=== PATIENT | female | born 1980 | race Native Hawaiian/Other Pacific Islander ===

== ENCOUNTER 2022-12-12 18:35 | Emergency (ER) | payer OTHER ==
--- NOTE | 2022-12-12 18:37 | ERPHSYRPT ---
- History of Present Illness Time Seen by Provider: 12/12/22 18:37 Source: patient Exam Limitations: no limitations Physician History: This is a 42-year-old obese white female patient who was sent to our emergency room from her rn psychiatric because of an elevated D-dimer of greater than 1.0. The patient has noticed in the last few days that she has increasing shortness of breath. She does not have chest pain. She does not have a cough. She has no leg pain. Patient has had contrast intravenously for other radiographic studies. Patient states that her kidney function is generally normal. Timing/Duration: today Severity: mild Associated Symptoms: shortness of breath (Chronic worse in the last 2 to 3 days), weakness, No chest pain Allergies/Adverse Reactions: azithromycin [From Zithromax] Allergy (Verified 12/12/22 19:13) Bleach (Sodium Hypochlorite) Allergy (Verified 12/12/22 19:13) diphenhydramine [From Benadryl] Allergy (Verified 12/12/22 19:13) erythromycin base Allergy (Verified 12/12/22 19:13) eszopiclone [From Lunesta] Allergy (Verified 12/12/22 19:13) gabapentin Allergy (Verified 12/12/22 19:13) metoprolol Allergy (Verified 12/12/22 19:13) metronidazole Allergy (Verified 12/12/22 19:13) montelukast [From Singulair] Allergy (Verified 12/12/22 19:13) prochlorperazine [From Compazine] Allergy (Verified 12/12/22 19:13) verapamil Allergy (Verified 12/12/22 19:13) Travel Risk - International Travel Have you traveled outside of the country in past 3 weeks: No - Coronavirus Screening Are you exhibiting any of the following symptoms?: No Close contact with a COVID-19 positive Pt in past 14-21 Days: No - Review of Systems Constitutional: No Symptoms Eyes: No Symptoms Ears, Nose, & Throat: No Symptoms Respiratory: Dyspnea Cardiac: No Symptoms, No Chest Pain Abdominal/Gastrointestinal: No Symptoms Genitourinary Symptoms: No Symptoms Musculoskeletal: No Symptoms Skin: No Symptoms Neurological: No Symptoms Psychological: No Symptoms Endocrine: No Symptoms Hematologic/Lymphatic: No Symptoms Immunological/Allergic: No Symptoms All Other Systems: Reviewed and Negative - Past Medical History Pertinent Past Medical History: Yes - Past Surgical History Past Surgical History: Yes - Nursing Vital Signs Nursing Vital Signs: Initial Vital Signs Temperature 97.0 F 12/12/22 18:54 Pulse Rate 86 12/12/22 18:54 Respiratory Rate 24 12/12/22 18:54 Blood Pressure 124/88 12/12/22 18:54 O2 Sat by Pulse Oximetry 98 12/12/22 18:54 Pain Scale Pain Intensity 4 - Physical Exam General Appearance: no apparent distress, alert, anxiety, obese Eye Exam: PERRL/EOMI, eyes nml inspection Ears, Nose, Throat Exam: normal ENT inspection, moist mucous membranes Neck Exam: normal inspection, non-tender, supple, full range of motion Respiratory Exam: normal breath sounds, lungs clear, airway intact, No chest tenderness, No respiratory distress Cardiovascular Exam: regular rate/rhythm, normal heart sounds, normal peripheral pulses Gastrointestinal/Abdomen Exam: soft, normal bowel sounds, No tenderness Pelvic Exam: not done Rectal Exam: not done Back Exam: normal inspection, normal range of motion, No CVA tenderness, No vertebral tenderness Extremity Exam: normal inspection, normal range of motion, pelvis stable Neurologic Exam: alert, oriented x 3, cooperative, outreach liaison II-XII nml as tested, normal mood/affect, nml cerebellar function, nml station & gait, sensation nml Skin Exam: normal color, warm, dry Lymphatic Exam: No adenopathy SpO2 Interpretation: normal O2 Delivery: Room Air - Course Nursing assessment & vital signs reviewed: Yes EKG Interpreted by Me: RATE (82), Sinus Rhythm, NORMAL AXIS, NORMAL INTERVALS, NORMAL QRS, NORMAL ST-T, Other (No acute ischemic changes on today's twelve-lead EKG. I interpreted this EKG on my own.) Ordered Tests: Active Orders 24 hr Category Date Time Status EKG-ER Only STAT Care 12/12/22 19:12 Active IV Insertion STAT Care 12/12/22 19:11 Active CBC W DIFF Stat Lab 12/12/22 19:25 Completed CMP Stat Lab 12/12/22 19:25 Completed D-DIMER QUANTITATIVE Stat Lab 12/12/22 19:25 Completed TROPONIN Q4H Lab 12/12/22 19:25 Completed TROPONIN Q4H Lab 12/12/22 23:15 Ordered TROPONIN Q4H Lab 12/13/22 03:15 Ordered Medication Summary Generic Name Dose Route Start Last Admin Trade Name Ramakrishna PRN Reason Stop Dose Admin Sodium Chloride 1,000 mls @ 100 mls/hr 12/12/22 19:15 12/12/22 20:10 Sodium Chloride 0.9% 1000 Ml IV 01/11/23 19:14 100 mls/hr .Q10H CEDRICK Administration Lab/Rad Data: Laboratory Result Diagrams 12/12/22 19:25 12/12/22 19:25 Laboratory Results 12/12/22 12/12/22 12/12/22 Range/Units 19:25 19:25 19:25 WBC (4.0-10.5) x10^3/uL RBC (4.1-5.4) x10^6/uL Hgb (12.0-16.0) g/dL Hct (35-47) % MCV (78-100) fL MCH (26-32) pg MCHC (32-36) g/dL RDW (11.5-14.0) % Plt Count (150-450) x10^3/uL MPV (7.5-11.0) fL Gran % (36.0-66.0) % Immature Gran % (Auto) (0.00-0.4) % Nucleat RBC Rel Count (0.00-0.1) % Eos # (Auto) (0-0.5) x10^3/uL Immature Gran # (Auto) (0.00-0.03) x10^3u/L Absolute Lymphs (auto) (1.0-4.6) x10^3/uL Absolute Monos (auto) (0.0-1.3) x10^3/uL Absolute Nucleated RBC (0.00-0.01) x10^3u/L Lymphocytes % (24.0-44.0) % Monocytes % (0.0-12.0) % Eosinophils % (0.00-5.0) % Basophils % (0.0-0.4) % Absolute Granulocytes (1.4-6.9) x10^3/uL Basophils # (0-0.4) x10^3/uL D-Dimer < 0.19 (0.0-0.50) mg/L Sodium 139 (137-145) mmol/L Potassium 4.1 (3.5-5.1) mmol/L Chloride 109 H (98-107) mmol/L Carbon Dioxide 20 L (22-30) mmol/L Anion Gap 13.2 (5-15) MEQ/L BUN 13 (7-17) mg/dL Creatinine 1.44 H (0.52-1.04) mg/dL Estimated GFR 42.6 ML/MIN Glucose 97 (74-106) mg/dL Calcium 9.0 (8.4-10.2) mg/dL Total Bilirubin 0.60 (0.2-1.3) mg/dL AST 21 (14-36) U/L ALT 14 (0-35) U/L Alkaline Phosphatase 97 (38-126) U/L Troponin I < 0.012 (0.000-0.034) ng/mL Serum Total Protein 7.3 (6.3-8.2) g/dL Albumin 4.4 (3.5-5.0) g/dL 12/12/22 Range/Units 19:25 WBC 8.9 (4.0-10.5) x10^3/uL RBC 4.48 (4.1-5.4) x10^6/uL Hgb 12.7 (12.0-16.0) g/dL Hct 38.7 (35-47) % MCV 86.4 (78-100) fL MCH 28.3 (26-32) pg MCHC 32.8 (32-36) g/dL RDW 13.2 (11.5-14.0) % Plt Count 261 (150-450) x10^3/uL MPV 10.6 (7.5-11.0) fL Gran % 67.8 H (36.0-66.0) % Immature Gran % (Auto) 0.4 (0.00-0.4) % Nucleat RBC Rel Count 0.0 (0.00-0.1) % Eos # (Auto) 0 (0-0.5) x10^3/uL Immature Gran # (Auto) 0.04 H (0.00-0.03) x10^3u/L Absolute Lymphs (auto) 2.10 (1.0-4.6) x10^3/uL Absolute Monos (auto) 0.66 (0.0-1.3) x10^3/uL Absolute Nucleated RBC 0.00 (0.00-0.01) x10^3u/L Lymphocytes % 23.5 L (24.0-44.0) % Monocytes % 7.4 (0.0-12.0) % Eosinophils % 0.0 (0.00-5.0) % Basophils % 0.9 (0.0-0.4) % Absolute Granulocytes 6.04 (1.4-6.9) x10^3/uL Basophils # 0.08 (0-0.4) x10^3/uL D-Dimer (0.0-0.50) mg/L Sodium (137-145) mmol/L Potassium (3.5-5.1) mmol/L Chloride (98-107) mmol/L Carbon Dioxide (22-30) mmol/L Anion Gap (5-15) MEQ/L BUN (7-17) mg/dL Creatinine (0.52-1.04) mg/dL Estimated GFR ML/MIN Glucose (74-106) mg/dL Calcium (8.4-10.2) mg/dL Total Bilirubin (0.2-1.3) mg/dL AST (14-36) U/L ALT (0-35) U/L Alkaline Phosphatase (38-126) U/L Troponin I (0.000-0.034) ng/mL Serum Total Protein (6.3-8.2) g/dL Albumin (3.5-5.0) g/dL - Progress Progress: unchanged Progress Note: 12/12/22 20:47 Patient was sent here for further evaluation because of an elevated D-dimer that was performed last week out of the rn psychiatric office. Patient was told that the value was elevated. Patient was told to come to the emergency department for further evaluation. We repeated the blood work here and patient's D-dimer and troponin levels are within normal limits. The patient's medical issues of moderate complexity. Based on the patient's complaint, patient's history of present illness, review of patient's medical history and review of patient's drug allergies. In addition, I used the findings on the physical exam to perform/order the work-up. I reviewed the results of the work-up with the patient. Discharge plan discussed with the patient and the patient's spouse. Patient will return to her prescribing physician/rn psychiatric for further ev aluation and management. Performing the CTA of the chest with contrast is not without potential adverse effects. Therefore, I told the patient I would not be ordering that test tonight based on her normal D-dimer values Counseled pt/family regarding: lab results, diagnosis, need for follow-up Medical Desision Making - Independent Historian Additional History obtained from: Spouse - Discussion of managment Reviewed:: Test results, Need for additional workup Agreed on:: Treatment plan, need for follow-up - Diagnostic Testing Diagnostic test were ordered, analyzed, and reviewed by me: Yes - Risk of complications Low Risk: Low risk of morbidity from additional dx testing or treatment - Departure Departure Disposition: Home Clinical Impression: Shortness of breath Condition: Stable Critical Care Time: No Referrals: RAGHAVENDRA MAY [Primary Care Provider] - Follow up/PCP as directed Additional Instructions: Continue medication as prescribed. Contact your rn psychiatric and prescribing physician tomorrow and let them know what our work-up showed.
[2022-12-12] MEDS ORDERED: Sodium Chloride 0.9% 1000 ML 1,000 ML IV SCH (19:15)
[2022-12-12 19:31] LABS: Absolute Neutrophil Ct (ANC) 6.04 x10^3/uL (1.4-6.9); BASOPHIL % 0.9 % (0.0-0.4); Basophil (Absolute #) 0.08 x10^3/uL (0-0.4); Eosinophil (Absolute #) 0 x10^3/uL (0-0.5); Hematocrit 38.7 % (35-47); Hemoglobin 12.7 g/dL (12.0-16.0); IMMATURE GRAN # 0.04 x10^3u/L (0.00-0.03); IMMATURE GRAN % 0.4 % (0.00-0.4); Lymphocytes % 23.5 % (24.0-44.0); Mean Cell Volume 86.4 fL (78-100); Mean Corpuscular Hemoglobin 28.3 pg (26-32); Mean Corpuscular Hgb Concent. 32.8 g/dL (32-36); Mean Platelet Volume 10.6 fL (7.5-11.0); Monocyte (Absolute #) 0.66 x10^3/uL (0.0-1.3); Monocytes % 7.4 % (0.0-12.0); Neutrophil % 67.8 % (36.0-66.0); Platelet Count 261 x10^3/uL (150-450); Red Blood Count 4.48 x10^6/uL (4.1-5.4); Red Cell Distribution Width 13.2 % (11.5-14.0); White Blood Count 8.9 x10^3/uL (4.0-10.5)
[2022-12-12 19:51] LABS: ALBUMIN 4.4 g/dL (3.5-5.0); ANION GAP 13.2 MEQ/L (5-15); BILIRUBIN,TOTAL 0.6 mg/dL (0.2-1.3); Creatinine 1 1.44 mg/dL (0.52-1.04); EST GLOMERULAR FILTRATION RATE 42.6 ML/MIN; Potassium 4.1 mmol/L (3.5-5.1); Total Protein 7.3 g/dL (6.3-8.2)
[2022-12-12] MEDS ORDERED: Sodium Chloride 0.9% 1000 ML 1,000 ML ONE (20:09)
[2022-12-12 21:15] VITALS: BP 152/86; PULSE 81; O2SAT 99
== END 2022-12-12 21:35 | disposition home or self-care (01) ==
LOC: ED 18:35
DX: R06.02 Shortness of breath (principal)
CPT/HCPCS: 36000; 36415; 80053; 84484; 85025; 85379; 93005; 99284